=== PATIENT | male | born 1980 | race Two or more races ===

== ENCOUNTER 2020-07-28 08:54 | Emergency (ER) | payer OTHER ==
[~2020-07-28] VITALS: Ht 177.8 cm; Wt 79.3 kg
--- NOTE | 2020-07-28 09:19 | NUR ---
PT SITTING UP IN BED FOR PA ASSESSMENT. NAD NOTED AT THIS TIME. PT ON BP, SPO2 AND CARDIAC MONITORING. SIDE RAIL UP, CALL LIGHT IN REACH.
[2020-07-28] MEDS ORDERED: OXYcodone/APAP 5/325MG TABLET PO ONE (09:30)
[2020-07-28] MEDS ORDERED: DIAZEPAM 5 MG TABLET PO ONE (09:30)
--- NOTE | 2020-07-28 09:37 | NUR ---
Upon entry to room to check if pt had ride home prior to med administration, pt not found in room. Currently in imaging. PA aware of RN holding medications prior to admin to ensure safe passage home.
[2020-07-28] MEDS ORDERED: DIAZEPAM 5 MG TABLET ONE (09:38)
[2020-07-28] MEDS ORDERED: OXYcodone/APAP 5/325MG TABLET ONE (09:39)
--- NOTE | 2020-07-28 10:03 | NUR ---
pt remains in imaging.
--- NOTE | 2020-07-28 10:18 | NUR ---
PT RETURNED FROM MRI. REPORTS ABILITY TO CALL FOR RIDE HOME. PT MEDICATED WITH PO MEDICATIONS. AWAITING IMAGING RESULTS.
--- NOTE | 2020-07-28 10:54 | NUR ---
PT REPORTS PERSISTING PAIN. SITTING RECLINED IN BED, CALL LIGHT IN REACH, SIDE RAILS UP. NO NEW ORDERS AT THIS TIME.
[2020-07-28 12:07] VITALS: BP 115/75
== END 2020-07-28 12:09 | disposition home or self-care (01) ==
LOC: ED 10:14
DX: M54.12 Radiculopathy, cervical region (principal); M54.2 Cervicalgia
CPT/HCPCS: 72141; 99285; J7512